=== PATIENT | male | born 1970 | race Caucasian/White ===

== ENCOUNTER 2023-04-01 15:08 | Outpatient (OUT) | payer OTHER, SELFPAY ==
--- NOTE | 2023-04-01 15:27 | XR_ITS ---
The [address] [address] Patient Name: MARIVEL LEE MRN: [id number] date: 1970 Sex: M Assigned Patient Location: LAB Current Patient Location: LAB Accession/Order Number: [id number] Exam Date: 04/01/2023 15:30 Report Date: 04/02/2023 07:50 At the request of: NAOMI MACARIO Procedure: XR ribs RT min 3V w CXR1V EXAMINATION: XR ribs RT min 3V w CXR1V HISTORY: Pleurodynia R07.81 COMPARISON: No relevant comparison available. FINDINGS: LUNGS: Small dense nodule within right midlung favoring a calcified granuloma. No acute infiltrates or suspicious findings. PLEURA: No pneumothorax, effusion, or pleural thickening. MEDIASTINUM: No visible mass or adenopathy. CARDIAC: No cardiomegaly or cardiac silhouette abnormality. RIBS: Normal. No significant arthropathy or acute abnormality. OTHER: Negative. XR/XR ribs RT min 3V w CXR1V IMPRESSION: 1. No acute or suspicious findings to account for patient's symptoms. Electronically authenticated by: SKINNY ROSENTHAL Date: 04/02/2023 07:50
--- NOTE | 2023-04-01 15:28 | XR_ITS ---
The [address] [address] Patient Name: MARIVEL LEE MRN: [id number] date: 1970 Sex: M Assigned Patient Location: LAB Current Patient Location: Accession/Order Number: [id number] Exam Date: 04/01/2023 15:30 Report Date: 04/02/2023 07:41 At the request of: NAOMI MACARIO Procedure: XR abdomen 1V EXAMINATION: XR abdomen 1V HISTORY: chronic left flank pain R10.9 COMPARISON: No relevant comparison available. FINDINGS: KIDNEY/URETER - RIGHT: No visible renal or ureteral calcifications. KIDNEY/URETER - LEFT: No visible renal or ureteral calcifications. PELVIS: 3 mm stone within lower left pelvis just left of midline. BOWEL: No abnormal dilation or deviation. BONES: No acute abnormality. OTHER: Negative. No abnormal gaseous collections. XR/XR abdomen 1V IMPRESSION: 1. A left pelvic calcification favors a phlebolith, however, a distal ureteral stone cannot be completely excluded. No prior studies for comparison. Consider CT abdomen pelvis without IV contrast for further evaluation if clinically indicated. Electronically authenticated by: SKINNY ROSENTHAL Date: 04/02/2023 07:41
[2023-04-01 16:22] LABS: Bilirubin Urine NEGATIVE (NEGATIVE); Blood Urine NEGATIVE (NEGATIVE); Clarity Urine CLEAR (CLEAR); Color Urine LT. YELLOW (YELLOW); Glucose Urine UA NEGATIVE (NEGATIVE); Ketones Urine NEGATIVE (NEGATIVE); Leukocyte Esterase Urine NEGATIVE (NEGATIVE); Nitrite Urine NEGATIVE (NEGATIVE); Protein Urine NEGATIVE (NEG/TRACE); Urobilinogen Urine 0.2 EU/dL (0.2-1.0)
== END 2023-04-01 15:09 | disposition home or self-care (01) ==
LOC: LAB 15:15
PROVIDERS: PCP Family Medicine; Visit Provider Family Medicine
DX: R10.9 Unspecified abdominal pain (principal); G89.29 Other chronic pain; R07.81 Pleurodynia
CPT/HCPCS: 71101; 74018; 81003